=== PATIENT | female | born 1960 | race Caucasian/White ===

== ENCOUNTER 2017-09-18 08:52 | Emergency (ER) | payer OTHER ==
--- NOTE | 2017-09-18 09:17 | EDPHY ---
H & P Stated Complaint: low back pain weakness/nausea dysuria/frequency Source: Patient Exam Limitations: No limitations - Personal History Current Tetanus Diphtheria and Acellular Pertussis (TDAP): Yes - Medical/Surgical History Hx Asthma: No Hx Chronic Respiratory Disease: No Hx Diabetes: No Hx Cardiac Disease: No Hx Renal Disease: No Hx Cirrhosis: No Hx Alcoholism: No Hx HIV/AIDS: No Hx Splenectomy or Spleen Trauma: No Other PMH: uterine ablation - Social History Smoking Status: Never smoked Time Seen by Provider: 09/18/17 09:13 HPI/ROS: HPI: This is a 56-year-old female who presents with Chief Complaint: low back pain weakness/nausea dysuria/frequency Location: Low back pain, suprapubic Quality: Achiness Duration: Since last night approximately 8 hr Signs and Symptoms: no fever, + nausea, no vomiting, no hematemesis, no blood in stool, no abdominal bloating, no diarrhea, no back pain, + urinary hesitation , no vaginal bleeding/discharge, no indigestion, no chest pain, no shortness of breath Timing: Acute, rapid onset Severity: Mild Context: Patient is generally healthy presents with rapid onset of bilateral lower back pain pressure accompanied by suprapubic pressure that is nonradiating in nature that started last night. She reports that she has urinary hesitation but denies any burning with urination or urinary frequency. She has no nausea, vomiting, diarrhea. Patient reports that she has a history of uterine ablation. No history of kidney stones. She reports that last time she ate was around 5:00 p.m. Yesterday evening. She has tried nothing for the symptoms. She is postmenopausal. She is here visiting from [place]. She denies any lower extremity edema, shortness of breath, chest pain. She denies any prior history of low back pain. She denies any radiation, numbness, weakness. She is ambulatory without any deficits. She has not had increased physical activity or any heavy lifting lately. She complains of generalized dull aching headache. Modifying Factors: None Comment: ROS: see HPI Constitutional: No fever, no chills, no weight loss Eyes: No blurred vision Respiratory: No shortness of breath, no cough Cardiovascular: No chest pain, no palpitations Gastrointestinal: + nausea, no vomiting, no diarrhea, no hematemesis, no blood in stool Genitourinary: + dysuria, no blood in urine Extremities: No myalgias, no edema Neurologic: No weakness, no numbness Skin: No rashes, no petechiae Hematologic: No bruising, no bleeding MEDICAL/SURGICAL/SOCIAL HISTORY: Medical history: Generally healthy. Does not take any regular medications. Surgical history: Uterine ablation Social history: Retired. Nonsmoker. Family history noncontributory. CONSTITUTIONAL: Tearful nontoxic appearing middle-aged white female, awake and alert, no obvious distress HEENT: Atraumatic and normocephalic, PERRL, EOMI. Nares patent; no rhinorrhea; no nasal mucosal edema. Tympanic membranes clear. Oropharynx clear, no exudate and moist pink mucosa. Airway patent. No lymphadenopathy. No meningismus. Cardiovascular: Normal S1/S2, regular rate, regular rhythm, without murmur rub or gallop. PULMONARY/CHEST: Symmetrical and nontender. Clear to auscultation bilaterally. Good air movement. No accessory muscle usage. ABDOMEN: Soft, nondistended, nontender, no rebound, no guarding, no peritoneal signs, no masses or organomegaly. No CVAT. EXTREMITIES: 2/2 pulses, strength 5/5, no deformities, no clubbing, no cyanosis or edema. NEUROLOGICAL: no focal neuro deficits. GCS 15. SKIN: Warm and dry, no erythema. no rash. Good capillary refill. (Richa Buckner) Constitutional: Initial Vital Signs Temperature (C) 37.3 C 09/18/17 08:55 Heart Rate 88 09/18/17 08:55 Respiratory Rate 18 09/18/17 08:55 Blood Pressure 144/85 H 09/18/17 08:55 O2 Sat (%) 94 09/18/17 08:55 O2 Delivery Mode Room Air Allergies/Adverse Reactions: Tetracyclines Allergy (Verified 09/18/17 08:55) Home Medications: Medication Instructions Recorded Cyclobenzaprine [Flexeril 10 MG 10 mg PO TID PRN #15 tab 09/18/17 (*)] Lipitor 10 mg (*) 09/18/17 Ondansetron Odt [Zofran Odt 4 mg 4 mg PO Q4 PRN #12 tab 09/18/17 (*)] Medical Decision Making ED Course/Re-evaluation: Labs, urinalysis, IV fluids, IV medications, LS xray ordered ordered 0920: Patient given 1 L normal saline, IV Toradol, IV Zofran 4 mg. Abdominal exam is soft and nontender doubt surgical process. 1020: Reassessed patient. Headache and low back pain now from 10/28 to 06/28. Lumbosacral x-ray my read shows no significant degenerative changes. No signs of fracture.+ fibroid Urinalysis shows trace LE and 3-5 WBCs no signs of alexandrea infection, no hematuria. Reassessed patient who reports that she is feeling better. Advised supportive care. No signs of neurovascular compromise/tenting of skin/compartment syndrome/ extremities and joints examined above and below area of concern and are neurovascularly intact. This patient was seen under the supervision of my secondary supervising physician. I evaluated care for this patient independently. Discussed this patient with Dr. Nicole who did not see the patient. (Richa Buckner) The patient was evaluated and managed by the physician compounding assistant. I have reviewed this chart and I agree with the findings and plan of care as documented , as indicated by my signature. I am the secondary supervising physician. ( Loly Nicole) Differential Diagnosis: Differential diagnosis includes but is not limited to constipation, urinary tract infection, pyelonephritis, ureterolithiasis, hydronephrosis, appendicitis. (Richa Buckner) - Data Points Laboratory Results: Laboratory Results 09/18/17 09:15 09/18/17 09:15 Medications Given: Discontinued Medications Sodium Chloride (Ns) 1,000 mls @ 0 mls/hr IV ONCE ONE; Wide Open PRN Reason: Protocol Stop: 09/18/17 09:19 Last Admin: 09/18/17 09:22 Dose: 1,000 mls Ketorolac Tromethamine (Toradol) 30 mg IVP EDNOW ONE Stop: 09/18/17 09:19 Last Admin: 09/18/17 09:23 Dose: 30 mg Ondansetron HCl (Zofran) 4 mg IVP EDNOW ONE Stop: 09/18/17 09:19 Last Admin: 09/18/17 09:23 Dose: 4 mg Departure - Departure Disposition: Home, Routine, Self-Care Clinical Impression: Viral syndrome, Lumbar degenerative disc disease Condition: Good Instructions: Cyclobenzaprine (By mouth), Ondansetron (By mouth), Viral Syndrome (ED), Degenerative Disc Disease (ED) Additional Instructions: Rest and take it easy over the next few days until you are feeling better. Consume a minimum of 8-10 glasses of water or electrolyte fluid replacement drinks that include Gatorade, Powerade, Pedialyte. Eat a bland diet for the next 48 hours and then slowly advance as tolerated. Take Zofran 1 tab every 4 hours as needed for nausea, vomiting. Take Flexeril every 8 hr as needed for muscle spasms. Take Tylenol 650 mg every 4 hr and/or Ibuprofen 600 mg every 8 hr with food as needed for pain, headache. Return to the ER immediately if you experience fevers/chills, shortness of breath, abdominal pain, inability to tolerate oral intake, or any other symptoms that concern you. Referrals: DR BLANE [Other] - 3-4 days, if not improved Prescriptions: Cyclobenzaprine [Flexeril 10 MG (*)] 10 mg PO TID PRN #15 tab PRN Reason: Spasms Ondansetron Odt [Zofran Odt 4 mg (*)] 4 mg PO Q4 PRN #12 tab PRN Reason: Nausea/Vomiting, Use 1st
[2017-09-18] MEDS ORDERED: KETOROLAC 30 MG/1 ML SDV IVP ONE (09:18)
[2017-09-18] MEDS ORDERED: ONDANSETRON 4 MG/2 ML VIAL IVP ONE (09:18)
[2017-09-18] MEDS ORDERED: NS 1,000 ML IV ONE (09:18)
[2017-09-18 09:27] LABS: PLATELET COUNT 216 10^3/uL (150-400)
[2017-09-18 11:13] VITALS: BP 131/60
== END 2017-09-18 11:12 | disposition home or self-care (01) ==
DX: M51.36 Other intervertebral disc degeneration, lumbar region (principal); B34.9 Viral infection, unspecified; E86.9 Volume depletion, unspecified
CPT/HCPCS: 96374; J1885; J2405